=== PATIENT | male | born 1965 ===

== ENCOUNTER 2018-02-06 19:13 | Outpatient (CLI) | payer OTHER | END 2018-02-06 20:00 | disposition home or self-care (01) | LOC: LAB 19:13 | DX: R97.20 Elevated prostate specific antigen [PSA] (principal) ==

== ENCOUNTER 2018-03-26 07:13 | Outpatient (CLI) | payer OTHER | END 2018-03-26 07:25 | disposition home or self-care (01) | LOC: SONOGRAMA 07:13 | DX: R97.20 Elevated prostate specific antigen [PSA] (principal) ==

== ENCOUNTER 2020-05-31 09:47 | Outpatient (CLI) | payer OTHER | END 2020-05-31 09:57 | disposition home or self-care (01) | LOC: LAB 09:47 | PROVIDERS: ATTEND Urology | DX: R97.20 Elevated prostate specific antigen [PSA] (principal) ==

== ENCOUNTER 2020-07-20 07:46 | Outpatient (CLI) | payer OTHER | END 2020-07-20 07:57 | disposition home or self-care (01) | LOC: SONOGRAMA 07:46 | PROVIDERS: ATTEND Urology | DX: C61 Malignant neoplasm of prostate (principal); D29.1 Benign neoplasm of prostate; R97.20 Elevated prostate specific antigen [PSA] ==